=== PATIENT | female | born 1990 | race Caucasian/White ===

== ENCOUNTER 2023-10-25 17:48 | Emergency (ER) | payer OTHER ==
[2023-10-25 18:03] VITALS: BP 118/72; PULSE 100; RESP 20; TEMP 98.6; BMI 34.7
[2023-10-25 18:56] LABS: BASO % 0.4 % (0-2.0); EOS % 2.8 % (0-4.5); HEMATOCRIT 36.9 % (32.4-45.2); HEMOGLOBIN 12.5 GM/dL (10.7-15.3); LYMPH % 23.8 % (8-40); MCH 28.7 pg (25.7-33.7); MCHC 33.8 g/dl (32.0-36.0); MEAN CELL VOLUME 85.2 fl (80-96); MEAN PLT VOLUME 8.4 fl (7.5-11.1); MONO % 6.9 % (3.8-10.2); NEUT % 66.1 % (42.8-82.8); PLATELET COUNT 245 10^3/uL (134-434); RBC 4.34 M/mm3 (3.60-5.2); RDW 14.7 % (11.6-15.6); WHITE BLOOD COUNT 10.8 K/mm3 (4.0-10.0)
[2023-10-25 18:57] LABS: URINE APPEARANCE CLEAR; URINE BILIRUBIN NEGATIVE (NEGATIVE); URINE COLOR YELLOW; URINE GLUCOSE (UA) NEGATIVE (NEGATIVE); URINE KETONE NEGATIVE (NEGATIVE); URINE LEUK ESTERASE NEGATIVE (NEGATIVE); URINE NITRITE NEGATIVE (NEGATIVE); URINE PROTEIN NEGATIVE (NEGATIVE); URINE UROBILINOGEN 0.2 mg/dL (0.2-1.0)
[2023-10-25 19:13] LABS: POTASSIUM 3.7 mmol/L (3.5-5.1)
[2023-10-25 19:16] LABS: ALBUMIN 3.5 g/dl (3.4-5.0); CALCIUM 8.3 mg/dL (8.5-10.1)
[2023-10-25 19:19] LABS: CREATININE 0.9 mg/dL (0.55-1.3)
[2023-10-25 19:21] LABS: BILIRUBIN,TOTAL 0.5 mg/dL (0.2-1); TOT PROT 7.2 g/dl (6.4-8.2)
== END 2023-10-25 21:48 | disposition home or self-care (01) ==
LOC: JER 17:48
DX: O09.511 Supervision of elderly primigravida, first trimester (principal); O20.9 Hemorrhage in early pregnancy, unspecified; O26.891 Other specified pregnancy related conditions, first trimester; R10.13 Epigastric pain; Z3A.01 Less than 8 weeks gestation of pregnancy
CPT/HCPCS: 36415; 76817-TC; 80053; 81003; 84702; 85025; 86850; 86900; 86901; 87086; 99284-25

== ENCOUNTER 2023-12-12 19:08 | Emergency (ER) | payer OTHER ==
[2023-12-12 19:21] VITALS: BP 116/73; PULSE 90; RESP 18; TEMP 97.5; BMI 34.7
[2023-12-12] MEDS ORDERED: ACETAMINOPHEN 325 MG TABLET (FP) ONE (19:50)
[2023-12-12] MEDS: ACETAMINOPHEN 500 MG TABLET (FP) PO ONE (19:57)
[2023-12-12 20:09] LABS: EPI CELLS 23 /uL (0-25.1); HYALINE CASTS 0 /uL (0-3.1); PH,URINE 5.5 (5.0-8.0); URINE APPEARANCE CLEAR; URINE BACTERIA 73 /uL (0-1359); URINE BILIRUBIN NEGATIVE (NEGATIVE); URINE COLOR YELLOW; URINE GLUCOSE (UA) NEGATIVE (NEGATIVE); URINE KETONE NEGATIVE (NEGATIVE); URINE LEUK ESTERASE 2+ (NEGATIVE); URINE NITRITE NEGATIVE (NEGATIVE); URINE PROTEIN NEGATIVE (NEGATIVE); URINE RBC 114 /uL (0-23.9); URINE UROBILINOGEN 0.2 mg/dL (0.2-1.0); URINE WBC 86 /uL (0-25.8)
[2023-12-12] MEDS ORDERED: NITROFURANTOIN MACROCRYSTAL 50 MG CAPSULE (FP) ONE (20:22)
[2023-12-12] MEDS: NITROFURANTOIN MONOHYD/M-CRYST 100 MG CAPSULE PO ONE (20:28)
== END 2023-12-12 20:52 | disposition home or self-care (01) ==
LOC: JER 19:08
DX: O20.9 Hemorrhage in early pregnancy, unspecified (principal); Z3A.13 13 weeks gestation of pregnancy
CPT/HCPCS: 81003; 87086; 99283-25

== ENCOUNTER 2023-12-21 21:08 | Emergency (ER) | payer OTHER ==
[2023-12-21 21:16] VITALS: BP 112/68; PULSE 76; RESP 19; TEMP 98.5; BMI 32.4
[2023-12-21] MEDS ORDERED: ACETAMINOPHEN 325 MG TABLET (FP) ONE (22:00)
[2023-12-21] MEDS: ACETAMINOPHEN 325 MG TABLET (FP) PO ONE (22:35)
[2023-12-21 22:52] LABS: BASO % 0.3 % (0-2.0); EOS % 3.6 % (0-4.5); HEMATOCRIT 34.5 % (32.4-45.2); HEMOGLOBIN 12.1 GM/dL (10.7-15.3); LYMPH % 23.6 % (8-40); MCH 30.1 pg (25.7-33.7); MEAN CELL VOLUME 86.1 fl (80-96); MEAN PLT VOLUME 8.5 fl (7.5-11.1); MONO % 7.1 % (3.8-10.2); NEUT % 65.4 % (42.8-82.8); PLATELET COUNT 223 10^3/uL (134-434); RBC 4.01 M/mm3 (3.60-5.2); RDW 14.8 % (11.6-15.6); WHITE BLOOD COUNT 9.5 K/mm3 (4.0-10.0)
[2023-12-21 22:55] LABS: EPI CELLS 8 /uL (0-25.1); HYALINE CASTS 0 /uL (0-3.1); URINE APPEARANCE CLEAR; URINE BACTERIA 350 /uL (0-1359); URINE BILIRUBIN NEGATIVE (NEGATIVE); URINE COLOR YELLOW; URINE GLUCOSE (UA) NEGATIVE (NEGATIVE); URINE KETONE NEGATIVE (NEGATIVE); URINE LEUK ESTERASE 2+ (NEGATIVE); URINE NITRITE NEGATIVE (NEGATIVE); URINE PROTEIN NEGATIVE (NEGATIVE); URINE RBC 24 /uL (0-23.9); URINE WBC 142 /uL (0-25.8)
[2023-12-21 23:28] LABS: POTASSIUM 3.7 mmol/L (3.5-5.1)
[2023-12-21 23:30] LABS: CALCIUM 8.5 mg/dL (8.5-10.1)
[2023-12-21 23:34] LABS: CREATININE 0.5 mg/dL (0.55-1.3)
[2023-12-21 23:35] LABS: BILIRUBIN,TOTAL 0.3 mg/dL (0.2-1); TOT PROT 6.8 g/dl (6.4-8.2)
[2023-12-21] MEDS ORDERED: NITROFURANTOIN MACROCRYSTAL 50 MG CAPSULE (FP) ONE (23:58)
[2023-12-22] MEDS: NITROFURANTOIN MONOHYD/M-CRYST 100 MG CAPSULE PO ONE (00:02)
== END 2023-12-22 | disposition home or self-care (01) ==
LOC: JER 21:08
DX: O09.521 Supervision of elderly multigravida, first trimester (principal); O20.8 Other hemorrhage in early pregnancy; O23.42 Unspecified infection of urinary tract in pregnancy, second trimester; Z3A.14 14 weeks gestation of pregnancy
CPT/HCPCS: 36415; 76801-TC; 80053; 81003; 85025; 86850; 86900; 86901; 87086; 99284-25

== ENCOUNTER 2024-03-25 12:19 | Emergency (ER) | payer OTHER ==
[2024-03-25 12:28] VITALS: BP 109/57; PULSE 85; RESP 18; TEMP 98.4; BMI 34.7
[2024-03-25 14:57] LABS: HIV INTERPRETATION NEGATIVE (NEGATIVE)
== END 2024-03-25 15:14 | disposition home or self-care (01) ==
LOC: JER 12:19
DX: J22 Unspecified acute lower respiratory infection (principal); R05.9 Cough, unspecified; R11.0 Nausea; Z32.01 Encounter for pregnancy test, result positive; Z20.822 Contact with and (suspected) exposure to COVID-19
CPT/HCPCS: 0241U-QW; 36415; 84703; 86803; 87389; 87651; 99283-25

== ENCOUNTER 2024-04-24 05:21 | Emergency (ER) | payer OTHER ==
[2024-04-24 05:30] VITALS: RESP 20; TEMP 98.4; BMI 34.7
[2024-04-24] MEDS ORDERED: ACETAMINOPHEN INJECTION 100 ML ONE (05:55)
[2024-04-24] MEDS: ACETAMINOPHEN 1000 MG/100 ML BAG IVPB ONE (06:04)
[2024-04-24 06:12] LABS: BASO % 0.3 % (0-2.0); EOS % 3.5 % (0-4.5); HEMATOCRIT 36.8 % (32.4-45.2); HEMOGLOBIN 11.8 GM/dL (10.7-15.3); LYMPH % 31.6 % (8-40); MCH 25.9 pg (25.7-33.7); MCHC 32.1 g/dl (32.0-36.0); MEAN CELL VOLUME 80.8 fl (80-96); MEAN PLT VOLUME 8.2 fl (7.5-11.1); MONO % 7.7 % (3.8-10.2); NEUT % 56.9 % (42.8-82.8); PLATELET COUNT 247 10^3/uL (134-434); RBC 4.56 M/mm3 (3.60-5.2); WHITE BLOOD COUNT 7.8 K/mm3 (4.0-10.0)
[2024-04-24 06:35] LABS: INR 1.04 (0.83-1.09); PROTHROMBIN TIME (PATIENT) 11.4 SEC (9.7-13.0)
[2024-04-24 06:37] LABS: POTASSIUM 4.2 mmol/L (3.5-5.1)
[2024-04-24 06:38] LABS: ACTIVATED PTT 28.8 SECONDS (25.2-36.5)
[2024-04-24 06:39] LABS: CALCIUM 8.6 mg/dL (8.5-10.1)
[2024-04-24 06:40] LABS: ALBUMIN 3.4 g/dl (3.4-5.0); BLOOD UREA NITROGEN 12.6 mg/dL (7-18)
[2024-04-24 06:43] LABS: CREATININE 0.7 mg/dL (0.55-1.3)
[2024-04-24 06:44] LABS: BILIRUBIN,TOTAL 0.4 mg/dL (0.2-1)
[2024-04-24 06:45] LABS: TOT PROT 7.2 g/dl (6.4-8.2)
[2024-04-24 07:49] LABS: EPI CELLS 30 /uL (0-25.1); HYALINE CASTS 1 /uL (0-3.1); PH,URINE 5.5 (5.0-8.0); URINE APPEARANCE CLEAR; URINE BACTERIA 44 /uL (0-1359); URINE BILIRUBIN NEGATIVE (NEGATIVE); URINE COLOR YELLOW; URINE GLUCOSE (UA) NEGATIVE (NEGATIVE); URINE KETONE NEGATIVE (NEGATIVE); URINE LEUK ESTERASE NEGATIVE (NEGATIVE); URINE NITRITE NEGATIVE (NEGATIVE); URINE PROTEIN NEGATIVE (NEGATIVE); URINE RBC 1149 /uL (0-23.9); URINE UROBILINOGEN 0.2 mg/dL (0.2-1.0); URINE WBC 8 /uL (0-25.8)
[2024-04-24 10:43] VITALS: BP 104/66; PULSE 83
== END 2024-04-24 10:41 | disposition home or self-care (01) ==
LOC: JER 05:21
PROC: 3E033NZ Introduction of Analgesics, Hypnotics, Sedatives into Peripheral Vein, Percutaneous Approach (ICD-10-PCS; principal; 2024-04-24)
DX: N93.9 Abnormal uterine and vaginal bleeding, unspecified (principal); R10.30 Lower abdominal pain, unspecified; R30.0 Dysuria
CPT/HCPCS: 36415; 76817-TC; 80053; 81003; 84702; 85025; 85610; 85730; 86850; 86900; 86901; 87086; 87491; 87591; 99285-25; J0131

== ENCOUNTER 2024-06-20 14:01 | Emergency (ER) | payer OTHER ==
[2024-06-20 14:15] VITALS: BP 118/68; PULSE 88; RESP 20; TEMP 98.5; BMI 31.6
[2024-06-20 15:24] LABS: ABSOLUTE IMMATURE GRANULOCYTES 0.03 x10^3/uL (0.0-0.031); BASOPHILS # 0.04 x10^3/uL (0.01-0.08); EOSINOPHIL % 6.3 % (0.7-5.8); HEMATOCRIT 37.3 % (34.1-44.9); MCHC 32.2 g/dl (32.2-35.5); MEAN CELL VOLUME 80.6 fl (79.4-94.8); MEAN PLT VOLUME 9.6 fl (9.4-12.3); MONOCYTE % 6.3 % (4.7-12.5); PLATELET COUNT 290 x10^3/uL (182-369); RDW 15.6 % (12.1-16.8)
[2024-06-20 15:49] LABS: POTASSIUM 3.8 mmol/L (3.5-5.1)
[2024-06-20 15:50] LABS: CALCIUM 8.5 mg/dL (8.5-10.1)
[2024-06-20 15:51] LABS: BLOOD UREA NITROGEN 12.4 mg/dL (7-18)
[2024-06-20 15:54] LABS: CREATININE 0.7 mg/dL (0.55-1.3)
== END 2024-06-20 16:15 | disposition home or self-care (01) ==
LOC: JER 14:01
DX: Z32.01 Encounter for pregnancy test, result positive (principal)
CPT/HCPCS: 36415; 80048; 84702; 85025; 86850; 86900; 86901; 99283-25